=== PATIENT | female | born 1970 | race Asian ===

== ENCOUNTER 2016-08-21 09:56 | Outpatient (CLI) | payer OTHER ==
--- NOTE | 2016-08-21 11:17 | DIAGNOSTIC IMAGING REPORT ---
PROCEDURE: US KIDNEY/RENAL COMPLETE INDICATION: Urinary frequency. Assess for extrinsic bladder compression (history of uterine fibroid changes). TECHNIQUE: Transabdominal scans of the kidneys with calculation of resistive indices. Prevoid and postvoid bladder volumes were obtained. COMPARISON: Comparison is made to CT abdomen and pelvis (11/15/2014), abdominal ultrasound (10/22/2014), and pelvic ultrasound (01/19/2014). FINDINGS: RIGHT: Right kidney is of normal size (9.2 x 4.2 x 5.7 cm) with normal cortical thickness (10 mm). No evidence of mass or hydronephrosis. Right renal resistive indices are normal (upper pole 0.63, mid pole 0.64, inferior pole 0.63). LEFT: Left kidney is of normal size (10.2 x 5.2 x 5.0 cm) with normal cortical thickness (1.2 cm). No evidence of mass or hydronephrosis. Left renal resistive indices are normal (upper pole 0.61, mid pole 0.61, intra pole 0.63). BLADDER: There is a small prevoid bladder volume (57 ml) with minimal residual (7 ml). Portions of the uterus are seen, without significant fibroid changes. IMPRESSION: 1. Normal kidneys. 2. Relatively small prevoid bladder volume. While this may be secondary to incomplete filling, small bladder volume could also be due to idiopathic interstitial cystitis. 3. No evidence of extrinsic compression of the urinary bladder.
== END 2016-08-21 23:00 ==
LOC: US SRH 09:56
DX: D25.9 Leiomyoma of uterus, unspecified (principal)